=== PATIENT | female | born 1970 | race Caucasian/White ===

== ENCOUNTER 2019-06-23 20:27 | Emergency (ER) | payer MEDICARE, OTHER ==
[~2019-06-23] VITALS: Ht 157.5 cm; Wt 59.0 kg
[~2019-06-23 20:27] MED LIST: ALPR0.5T PO
[2019-06-23 20:44] VITALS: BP_SYST 124
[2019-06-24] MEDS ORDERED: KETOROLAC TROMETHAMINE 30 MG VIAL IM ONE (00:15)
[2019-06-24] MEDS ORDERED: KETOROLAC TROMETHAMINE 30 MG VIAL IVP ONE (00:30)
[2019-06-24] MEDS ORDERED: IOHEXOL 100 ML IV ONE (00:56)
[2019-06-24] MEDS ORDERED: LIDOCAINE VISCOUS 2%, 15 ML UDC MM ONE (02:00)
[2019-06-24] MEDS ORDERED: LIDOCAINE VISCOUS 2%, 15 ML UDC ONE (02:05)
[2019-06-24] MEDS ORDERED: AMOXICILLIN 500 MG CAPSULE PO ONE (02:15)
[2019-06-24 02:29] VITALS: BP_SYST 124
[2019-06-24] MEDS ORDERED: HYDROcodone/ACETAMIN 5-325 MG TAB (NORCO/ VICODIN) PO ONE (02:30)
== END 2019-06-24 02:29 | disposition home or self-care (01) ==
LOC: SED 20:27
DX: J02.9 Acute pharyngitis, unspecified (principal); R03.0 Elevated blood-pressure reading, without diagnosis of hypertension; Z88.6 Allergy status to analgesic agent
CPT/HCPCS: 36415; 70491; 86403; 87081; 96374; 99284; J1885; J2001; Q9967

== ENCOUNTER 2022-09-20 20:08 | Emergency (ER) | payer MEDICAID, OTHER ==
[~2022-09-20] VITALS: Ht 157.5 cm; Wt 63.5 kg
[2022-09-20 20:12] VITALS: BP_SYST 132
[2022-09-20 21:30] LABS: BASOPHILS # (AUTO) 0.4 K/uL (0.0-0.2); BASOPHILS % (AUTO) 4.8 % (0.0-2.0); EOSINOPHILS # (AUTO) 0.7 K/uL (0.0-0.4); EOSINOPHILS % (AUTO) 7.5 % (0.0-4.0); HEMATOCRIT 39.6 % (36-48); HEMOGLOBIN 13.6 g/dL (12.0-16.0); LYMPHOCYTES # (AUTO) 1.7 K/uL (1.0-5.5); LYMPHOCYTES % (AUTO) 17.9 % (20.5-51.5); MEAN CORPUSCULAR HEMOGLOBIN 29 pg (27-31); MEAN CORPUSCULAR HGB CONC 34 % (32-36); MEAN CORPUSCULAR VOLUME 85 fL (79.0-98.0); MONOCYTES # (AUTO) 0.3 K/uL (0.0-1.0); MONOCYTES % (AUTO) 2.9 % (1.7-9.3); NEUTROPHILS # (AUTO) 6.1 K/uL (1.8-7.7); NEUTROPHILS % (AUTO) 66.9 % (40.0-70.0); PLATELET COUNT (AUTO) 320 K/uL (130-430); RED BLOOD CELL COUNT(AUTO) 4.65 MIL/uL (4.2-6.2); RED CELL DISTRIBUTION WIDTH 12.9 % (9.0-15.0); WHITE BLOOD COUNT (AUTO) 9.2 K/uL (4.8-10.8)
[2022-09-20 21:38] LABS: CALCIUM 9.3 mg/dL (8.4-11.0); CREATININE 0.91 mg/dL (0.55-1.30); POTASSIUM 4.1 mmol/L (3.5-5.1)
--- NOTE | 2022-09-20 21:52 | NUR ---
Pt from home with c/o of pelvic pain that radiates to the right side and abd destention that started a couple months ago. Pt reports yeast infection and UTI in last couple of months.
[2022-09-20 21:54] LABS: TOTAL BILIRUBIN 0.1 mg/dL (0.0-1.0)
--- NOTE | 2022-09-20 22:13 | NUR ---
Urine collected and sent to lab.
[2022-09-20 22:34] LABS: BILIRUBIN,URINE NEGATIVE (NEGATIVE); BLOOD, URINE NEGATIVE (NEGATIVE); CLARITY/URINE CLEAR (CLEAR); COLOR,URINE ORANGE (YELLOW); GLUCOSE,URINE TRACE (NEGATIVE); KETONES,URINE NEGATIVE (NEGATIVE); LEUKOCYTE ESTERASE ,URINE NEGATIVE (NEGATIVE); NITRITE, URINE POSITIVE (NEGATIVE); PH,URINE 5.5 (5.0-8.0); PROTEIN URINE 1+ (NEGATIVE)
[2022-09-20 22:44] LABS: BACTERIA,URINE FEW /HPF (None Seen); MUCUS,URINE 1+ /LPF (None Seen); WBC,URINE 0-3 /HPF (0-3)
--- NOTE | 2022-09-20 23:35 | NUR ---
Dr. Hamilton at bedside with patient for evaluation.
--- NOTE | 2022-09-20 23:51 | NUR ---
Pelvic exam set up at bedside per protocol. Wet mount at bedside and extra lubricant provided.
[2022-09-21] MEDS ORDERED: KETOROLAC TROMETHAMINE 60 MG/2 ML VIAL IM ONE (00:30)
[2022-09-21] MEDS ORDERED: HYDROcodone/ACETAMIN 5-325 MG TAB (NORCO/ VICODIN) PO ONE (02:00)
[2022-09-21] MEDS ORDERED: IBUP-1969 PO (02:02)
[2022-09-21] MEDS ORDERED: FLUC200T PO (02:04)
[2022-09-21 02:36] VITALS: BP_SYST 120
--- NOTE | 2022-09-21 02:36 | NUR ---
Patient given written and verbal discharge instructions and verbalizes understanding. ER Dr. Hamilton discussed with patient the results and treatment provided. Patient in stable condition. ID arm band removed. Rx of motrin and diflucan given. Patient educated on pain management and to follow up with PMD. Pain Scale 0. Opportunity for questions provided and answered. Medication side effect fact sheet provided.
== END 2022-09-21 02:36 | disposition home or self-care (01) ==
LOC: SED 20:08
DX: B37.31 Acute candidiasis of vulva and vagina (principal); R10.2 Pelvic and perineal pain; R39.15 Urgency of urination; R35.0 Frequency of micturition; Z88.6 Allergy status to analgesic agent; Z79.899 Other long term (current) drug therapy
CPT/HCPCS: 99285; 80053; 81000; 85025; 87086; 36415; 87491; 76856; 81025; 96372; J1885

== ENCOUNTER 2024-05-28 14:05 | Emergency (ER) | payer MEDICAID ==
[~2024-05-28] VITALS: Ht 157.5 cm; Wt 63.5 kg
[~2024-05-28 14:05] MED LIST changes: +FLUC200T PO; +IBUP-1969 PO
[2024-05-28 14:10] VITALS: BP_SYST 122; PULSE 114; RESP 18; TEMP 97.9; O2SAT 95
[2024-05-28 15:44] LABS: BASOPHILS % (AUTO) 0.3 % (0.0-2.0); EOSINOPHILS # (AUTO) 0.1 K/uL (0.0-0.4); EOSINOPHILS % (AUTO) 0.6 % (0.0-4.0); HEMATOCRIT 39.7 % (36-48); HEMOGLOBIN 13.6 g/dL (12.0-16.0); LYMPHOCYTES # (AUTO) 1.2 K/uL (1.0-5.5); LYMPHOCYTES % (AUTO) 9.3 % (20.5-51.5); MEAN CORPUSCULAR HEMOGLOBIN 29 pg (27-31); MEAN CORPUSCULAR HGB CONC 34 % (32-36); MEAN CORPUSCULAR VOLUME 86 fL (79.0-98.0); MONOCYTES % (AUTO) 7.3 % (1.7-9.3); NEUTROPHILS # (AUTO) 10.8 K/uL (1.8-7.7); NEUTROPHILS % (AUTO) 82.5 % (40.0-70.0); PLATELET COUNT (AUTO) 314 K/uL (130-430); RED BLOOD CELL COUNT(AUTO) 4.61 MIL/uL (4.2-6.2); RED CELL DISTRIBUTION WIDTH 13.1 % (9.0-15.0); WHITE BLOOD COUNT (AUTO) 13.1 K/uL (4.8-10.8)
[2024-05-28 16:08] LABS: ALBUMIN 3.7 g/dL (3.4-4.8); BILIRUBIN,DIRECT 0.1 mg/dL (0.0-0.3); CALCIUM 9.1 mg/dL (8.4-11.0); CREATININE 0.76 mg/dL (0.55-1.30); TOTAL BILIRUBIN 0.5 mg/dL (0.0-1.0); TOTAL PROTEIN, SERUM 7.8 g/dL (6.4-8.3)
[2024-05-28] MEDS: KETOROLAC TROMETHAMINE 60 MG/2 ML VIAL IM ONE (16:28)
[2024-05-28 16:31] LABS: BILIRUBIN,URINE NEGATIVE (NEGATIVE); BLOOD, URINE 1+ (NEGATIVE); CLARITY/URINE CLEAR (CLEAR); COLOR,URINE YELLOW (YELLOW); GLUCOSE,URINE NEGATIVE (NEGATIVE); KETONES,URINE NEGATIVE (NEGATIVE); LEUKOCYTE ESTERASE ,URINE NEGATIVE (NEGATIVE); NITRITE, URINE NEGATIVE (NEGATIVE); PROTEIN URINE NEGATIVE (NEGATIVE); UROBILINOGEN,URINE 0.2 (0.2-1.0)
[2024-05-28 17:07] LABS: BACTERIA,URINE RARE /HPF (None Seen); WBC,URINE 0-3 /HPF (0-3)
[2024-05-28] MEDS ORDERED: HYDR-3917 PO (17:53)
[2024-05-28] MEDS ORDERED: TAMS-11 PO (17:53)
[2024-05-28] MEDS ORDERED: IBUP-1969 PO (17:53)
[2024-05-28] MEDS: fentaNYL CITRATE/PF 100 MCG/2 ML AMP IVP ONE (18:01)
[2024-05-28] MEDS: NACL 0.9% 1,000 ML IV ONE (18:02)
[2024-05-28 19:04] VITALS: BP_SYST 120; PULSE 66; RESP 16; O2SAT 95
== END 2024-05-28 19:04 | disposition home or self-care (01) ==
LOC: SED 14:05
DX: N20.0 Calculus of kidney (principal); N28.1 Cyst of kidney, acquired; R10.84 Generalized abdominal pain; R19.7 Diarrhea, unspecified; Z88.5 Allergy status to narcotic agent; Z79.899 Other long term (current) drug therapy; Z79.2 Long term (current) use of antibiotics
CPT/HCPCS: 99285; 74176; 96374; 96361; 80076; 80048; 81001; 83690; 85025; 36415; 81025; 96372; J1885; J3010; J7030; 81000; 81015